=== PATIENT | female | born 1930 | race Caucasian/White ===

== ENCOUNTER 2017-08-04 09:20 | Day surgery (SDC) | payer OTHER ==
[2017-08-04] MEDS ORDERED: TETRACAINE 0.5% OPHTH 1 DOSE AFFEYE ONE (09:45)
[2017-08-04] MEDS ORDERED: VIGAMOX 0.5% OPHTH 1 DOSE AFFEYE ONE ×3 (09:50→10:00)
[2017-08-04] MEDS ORDERED: PROLENSA OPHTH 1 DOSE AFFEYE ONE (10:01)
[2017-08-04] MEDS ORDERED: ALPHAGAN-P OPHTH 1 DOSE AFFEYE ONE (10:02)
[2017-08-04] MEDS ORDERED: MYDRIACIL OPHTH 1 DOSE AFFEYE ONE ×3 (10:03→10:05)
[2017-08-04] MEDS ORDERED: AK-DILATE 2.5% OPHTH 1 DOSE OP ONE ×3 (10:03→10:05)
[2017-08-04] MEDS ORDERED: CYCLOGYL 1% OPHTH 1 DOSE OP ONE ×3 (10:03→10:05)
[2017-08-04] MEDS ORDERED: NS 500 ML IV 500 ML IV ONE (10:25)
[2017-08-04 16:44] VITALS: BP 168/88
== END 2017-08-04 13:10 | disposition home or self-care (01) ==
LOC: SURG1 09:20
PROVIDERS: ATTEND Ophthalmology
PROC: 08RK3JZ Replacement of Left Lens with Synthetic Substitute, Percutaneous Approach (ICD-10-PCS; principal; 2017-08-04 17:15)
PROC: 08DK3ZZ Extraction of Left Lens, Percutaneous Approach (ICD-10-PCS; principal; 2017-08-04 17:15)
DX: H25.12 Age-related nuclear cataract, left eye (principal); H25.012 Cortical age-related cataract, left eye

== ENCOUNTER 2018-01-05 07:16 | Day surgery (SDC) | payer OTHER ==
[2018-01-05] MEDS ORDERED: TETRACAINE 0.5% OPHTH 1 DOSE AFFEYE ONE ×2 (07:45→09:00)
[2018-01-05] MEDS ORDERED: VIGAMOX 0.5% OPHTH 1 DOSE AFFEYE ONE ×5 (07:50→09:38)
[2018-01-05] MEDS ORDERED: DUONEB 0.5 MG/3 MG NEB ONE (07:55)
[2018-01-05] MEDS ORDERED: TESSALON PERLES PO ONE (07:57)
[2018-01-05] MEDS ORDERED: PROLENSA OPHTH 1 DOSE AFFEYE ONE (08:01)
[2018-01-05] MEDS ORDERED: ALPHAGAN-P OPHTH 1 DOSE AFFEYE ONE (08:02)
[2018-01-05] MEDS ORDERED: AK-DILATE 2.5% OPHTH 1 DOSE OP ONE ×3 (08:03→08:05)
[2018-01-05] MEDS ORDERED: MYDRIACIL OPHTH 1 DOSE AFFEYE ONE ×3 (08:03→08:05)
[2018-01-05] MEDS ORDERED: CYCLOGYL 1% OPHTH 1 DOSE OP ONE ×3 (08:03→08:05)
[2018-01-05] MEDS ORDERED: BETADINE OPHTH SOLN 5% EACHEYE ONE (09:00)
[2018-01-05] MEDS ORDERED: NS 1000 ML 1,000 ML ONE (09:05)
[2018-01-05] MEDS ORDERED: BSS OPHTH (PLAIN) 500 ML with VANCOMYCIN HCL 500 MG VIAL 25 MG, ADRENALINE CHL INJ 1 MG IR ONE ×6 (09:16)
[2018-01-05] MEDS ORDERED: ADRENALINE CHL INJ IJ ONE (09:27)
[2018-01-05] MEDS ORDERED: DUOVISC IO ONE (09:27)
[2018-01-05] MEDS ORDERED: XYLOCAINE-MPF 1% IJ ONE (09:27)
[2018-01-05 11:30] VITALS: BP 168/71
[2018-01-05] MEDS ORDERED: DIPRIVAN VIAL ONE (13:57)
== END 2018-01-05 10:05 | disposition home or self-care (01) ==
LOC: SURG1 07:16
PROVIDERS: ATTEND Ophthalmology
PROC: 08DK3ZZ Extraction of Left Lens, Percutaneous Approach (ICD-10-PCS; principal; 2018-01-05 07:30)
PROC: 08RK3JZ Replacement of Left Lens with Synthetic Substitute, Percutaneous Approach (ICD-10-PCS; principal; 2018-01-05 07:30)
DX: H25.12 Age-related nuclear cataract, left eye (principal); H25.012 Cortical age-related cataract, left eye
CPT/HCPCS: 94640; 99100; A4217; J0170; J3370; J3490; J7620

== ENCOUNTER 2018-01-19 07:03 | Day surgery (SDC) | payer OTHER ==
[2018-01-19] MEDS ORDERED: TETRACAINE 0.5% OPHTH 1 DOSE AFFEYE ONE ×2 (07:04→08:50)
[2018-01-19] MEDS ORDERED: VIGAMOX 0.5% OPHTH 1 DOSE AFFEYE ONE ×5 (07:05→10:04)
[2018-01-19] MEDS ORDERED: NS 500 ML IV 500 ML IV ONE (07:10)
[2018-01-19] MEDS ORDERED: PROLENSA OPHTH 1 DOSE AFFEYE ONE (07:17)
[2018-01-19] MEDS ORDERED: ALPHAGAN-P OPHTH 1 DOSE AFFEYE ONE (07:18)
[2018-01-19] MEDS ORDERED: AK-DILATE 2.5% OPHTH 1 DOSE OP ONE ×3 (07:20→07:24)
[2018-01-19] MEDS ORDERED: MYDRIACIL OPHTH 1 DOSE AFFEYE ONE ×3 (07:20→07:24)
[2018-01-19] MEDS ORDERED: CYCLOGYL 1% OPHTH 1 DOSE OP ONE ×3 (07:20→07:24)
[2018-01-19] MEDS ORDERED: TESSALON PERLES PO ONE (08:12)
[2018-01-19] MEDS ORDERED: DUONEB 0.5 MG/3 MG NEB ONE (08:12)
[2018-01-19] MEDS ORDERED: BETADINE OPHTH SOLN 5% EACHEYE ONE (08:50)
[2018-01-19] MEDS ORDERED: XYLOCAINE-MPF 1% IJ ONE ×2 (09:22→09:33)
[2018-01-19] MEDS ORDERED: ADRENALINE CHL INJ IJ ONE ×2 (09:22→09:33)
[2018-01-19] MEDS ORDERED: DUOVISC IO ONE ×2 (09:22→09:33)
[2018-01-19] MEDS ORDERED: BSS OPHTH (PLAIN) 500 ML with VANCOMYCIN HCL 500 MG VIAL 25 MG, ADRENALINE CHL INJ 1 MG IR ONE ×6 (09:23)
[2018-01-19] MEDS ORDERED: VERSED ONE (09:37)
[2018-01-19] MEDS ORDERED: DIPRIVAN VIAL ONE (09:37)
[2018-01-19] MEDS ORDERED: VISCOAT 0.5 ML IO ONE (09:58)
[2018-01-19 10:25] VITALS: BP 174/80
== END 2018-01-19 10:30 | disposition home or self-care (01) ==
LOC: SURG1 07:03
PROVIDERS: ATTEND Ophthalmology
PROC: 08RJ3JZ Replacement of Right Lens with Synthetic Substitute, Percutaneous Approach (ICD-10-PCS; principal; 2018-01-19 07:30)
PROC: 08DJ3ZZ Extraction of Right Lens, Percutaneous Approach (ICD-10-PCS; principal; 2018-01-19 07:30)
DX: H25.11 Age-related nuclear cataract, right eye (principal); H25.011 Cortical age-related cataract, right eye
CPT/HCPCS: 94640; 99100; A4217; J0170; J2250; J3370; J3490; J7620